=== PATIENT | female | born 1960 | race Caucasian/White ===

== ENCOUNTER 2017-09-03 20:16 | Emergency (ER) | payer MEDICAID ==
[~2017-09-03] VITALS: Ht 170.2 cm; Wt 71.8 kg
[2017-09-03] MEDS ORDERED: OXYC5 PO (20:37)
[2017-09-03] MEDS ORDERED: HYDROCODONE/ACETAMINOPHEN 5-325 MG TABLET PO ONE (21:45)
[2017-09-03 22:15] VITALS: BP 135/79
== END 2017-09-03 22:18 | disposition home or self-care (01) ==
LOC: EMS 20:16
DX: M54.30 Sciatica, unspecified side (principal); F12.90 Cannabis use, unspecified, uncomplicated; Z76.0 Encounter for issue of repeat prescription; Z88.0 Allergy status to penicillin; Z88.2 Allergy status to sulfonamides
CPT/HCPCS: 99283